=== PATIENT | male | born 2000 | race Caucasian/White ===

== ENCOUNTER 2019-09-25 22:06 | Emergency (ER) | payer SELFPAY ==
[~2019-09-25] VITALS: Ht 167.6 cm; Wt 108.9 kg
[2019-09-25 22:15] VITALS: BP 150/50
--- NOTE | 2019-09-25 22:18 | NUR ---
to lobby a/w bed ambulatory
--- NOTE | 2019-09-25 23:01 | NUR ---
PT AMBULATED TO [facility]
--- NOTE | 2019-09-25 23:08 | NUR ---
c/o left ear pain x today ; denies injury or drainage
--- NOTE | 2019-09-26 00:30 | NUR ---
reminded pt continues to wait for md ulloa
[2019-09-26] MEDS ORDERED: cefTRIAXone 1,000 MG in LIDOCAINE MPF 1% 2.1 ML IM ONE (01:05)
[2019-09-26] MEDS ORDERED: oxyCODONE/APAP 5/325 MG 1 TAB TAB PO ONE (01:05)
[2019-09-26] MEDS ORDERED: cefTRIAXone 1,000 MG VIAL ONE (01:22)
[2019-09-26] MEDS ORDERED: LIDOCAINE MPF 1% 5 ML ONE (01:23)
[2019-09-26 01:43] VITALS: BP 138/58
--- NOTE | 2019-09-26 01:43 | NUR ---
Patient discharged with v/s stable. Written and verbal after care instructions given and explained. Patient alert, oriented and verbalized understanding of instructions. Ambulatory with steady gait. All questions addressed prior to discharge. ID band removed. Patient advised to follow up with PMD. Rx of augmentin, norco given. Patient educated on indication of medication including possible reaction and side effects. Opportunity to ask questions provided and answered.
== END 2019-09-26 01:43 | disposition home or self-care (01) ==
LOC: MED 22:06
DX: H72.92 Unspecified perforation of tympanic membrane, left ear (principal); H66.92 Otitis media, unspecified, left ear; Z98.890 Other specified postprocedural states
CPT/HCPCS: 96372; 99283; J0696; J2001